=== PATIENT | female | born 1950 | race Caucasian/White ===

== ENCOUNTER 2016-12-29 06:05 | Day surgery (SDC) | payer OTHER ==
[~2016-12-29] VITALS: Ht 152.4 cm; Wt 60.4 kg
[2016-12-29 06:56] VITALS: Ht 152.4 cm; Wt 60.4 kg
[2016-12-29] MEDS ORDERED: LOSA25TA5 PO (07:04)
[2016-12-29] MEDS ORDERED: ASPI-664 PO (07:04)
[2016-12-29] MEDS ORDERED: METO25TA7 PO (07:04)
[2016-12-29] MEDS ORDERED: HYDR12.58 PO (07:04)
[2016-12-29] MEDS ORDERED: AMLO2.5T78 PO (07:04)
[2016-12-29 07:17] VITALS: BP 142/80; PULSE 112; RESP 15
[2016-12-29] MEDS ORDERED: MIDAZOLAM 1 MG/ML 2 ML INJ ONE (08:52)
[2016-12-29] MEDS ORDERED: FENTAnyl 50 MCG/ML VIAL ONE (08:52)
--- NOTE | 2016-12-29 10:23 | GILP ---
DATE OF PROCEDURE: 12/29/2016 NAME OF PROCEDURE: Colonoscopy and biopsy. SURGEON: Torey Willard MD PREOPERATIVE DIAGNOSES: 1. Screening colonoscopy. 2. Positive occult blood in stool. POSTOPERATIVE DIAGNOSES: 1. Colonoscopy all the way to the cecum. 2. Ulcerated polypoid masses in the cecum and multiple biopsies were taken for histopathology. 3. Internal hemorrhoids. INDICATION FOR THE PROCEDURE: Ms. Kaitlin Ruiz is a 66-year-old female patient who was noted to h ave positive occult blood in stool. She never had a screening colonoscopy, so the patient was sched uled for colonoscopic examination for further evaluation. The procedure and possible complications were well explained to the patient. The patient understood and consented to the procedure. DESCRIPTION OF PROCEDURE: Under the influence of fentanyl and Versed, the colonoscope was carefully introduced in the rectum and under direct vision, it was advanced all the way to the cecum. FINDINGS: The patient was noted to have ulcerative polypoid masses in the cecum and multiple biopsi es were taken for histopathology. The patient was also found to have internal hemorrhoids. She tolerated the procedure very well and there was no complication from the procedure. At the end of the procedure, she was awake with stable vital signs and she was discharged home to the care of [facility]. IMPRESSION: 1. Colonoscopy all the way to the cecum. 2. Multiple ulcerated polypoid lesions in the cecum and biopsies were taken for histopathology. 3. Internal hemorrhoids. PLAN: 1. Await histopathology report. 2. The timing for the next colonoscopy will be decided after reviewing the biopsy report. Dictated By: TOREY WILLARD MD GD/NTS Conf#: [id number] DID#: [id number] CC: TOREY WILLARD MD;*EndCC*
== END 2016-12-29 18:45 | disposition home or self-care (01) ==
LOC: GIL 06:05
PROVIDERS: ATTEND Internal Medicine Gastroenterology
DX: K92.1 Melena (principal); D12.0 Benign neoplasm of cecum
CPT/HCPCS: 45380; 88305; J2250; J3010; Z7610